=== PATIENT | female | born 1995 | race Hispanic/Latino ===

== ENCOUNTER 2024-03-11 13:02 | Outpatient (CLI) | payer OTHER | END 2024-03-11 13:03 | disposition home or self-care (01) | LOC: CSHULT 13:02 | PROVIDERS: ATTEND Family Medicine | DX: Z34.83 Encounter for supervision of other normal pregnancy, third trimester (principal); Z3A.34 34 weeks gestation of pregnancy | CPT/HCPCS: 76805 ==

== ENCOUNTER 2024-03-19 23:50 | Day surgery (SDC) | payer OTHER ==
[2024-03-20 00:25] VITALS: BMI 33.3
[2024-03-20 01:35] LABS: Bilirubin Neg (Negative); Blood, Urine Negative (Negative); Clarity Clear (Clear); Glucose, Urine (Dipstick) Normal (Negative); Ketone, Urine Negative (Negative); Leukocyte Negative (Negative); Nitrite Negative (Negative); Protein, Urine (Dipstick) 15 mg/dl (Neg-Trace); Specific Gravity, Urine 1.015 (1.005-1.030); pH, Urine 6.5 (5.0-9.0)
== END 2024-03-20 02:00 | disposition home or self-care (01) ==
LOC: CSHLD/OP 23:50
PROVIDERS: ATTEND Family Medicine
DX: O47.03 False labor before 37 completed weeks of gestation, third trimester (principal); O09.43 Supervision of pregnancy with grand multiparity, third trimester; O23.43 Unspecified infection of urinary tract in pregnancy, third trimester; R30.0 Dysuria; Z3A.36 36 weeks gestation of pregnancy; Z79.899 Other long term (current) drug therapy
CPT/HCPCS: 81003; 99283

== ENCOUNTER 2024-04-04 12:08 | Inpatient (IN) | payer MEDICAID, OTHER ==
[~2024-04-04 12:08] MED LIST: Bupivacaine 0.25% HCL 30 ML VIAL ONE; ePHEDrine Sulfate 50 MG/10 ML VIAL ONE
[2024-04-04] MEDS: Lactated Ringer's 1,000 ML IV SCH (12:40)
[2024-04-04 13:00] VITALS: BMI 35.7
[2024-04-04] MEDS ORDERED: Acetaminophen 500 MG TAB PO PRN (13:08)
[2024-04-04] MEDS ORDERED: Tranexamic Acid 1,000 MG/10 ML VIAL IVP PRN (13:08)
[2024-04-04] MEDS ORDERED: Methylergonovine 0.2 MG/ML VIAL IM PRN (13:08)
[2024-04-04] MEDS ORDERED: Misoprostol 200 MCG TAB PR PRN (13:08)
[2024-04-04] MEDS ORDERED: Ondansetron PF 4 MG/2 ML Vial IVP PRN ×2 (13:08→14:36)
[2024-04-04] MEDS ORDERED: Carboprost 250 MCG/ML AMP IM PRN (13:08)
[2024-04-04] MEDS ORDERED: Lidocaine 1% (PF) 30 ML VIAL SC PRN (13:08)
[2024-04-04] MEDS ORDERED: hydrALAZINE 20 MG/ML VIAL SLOW IVP PRN (13:08)
[2024-04-04] MEDS ORDERED: Diphenoxylate HCl/Atropine Tablet PO PRN (13:08)
[2024-04-04] MEDS ORDERED: fentaNYL 50 mcg/mL 1 mL Vial SLOW IVP PRN (13:08)
[2024-04-04] MEDS ORDERED: Promethazine HCl 25 MG/ML VIAL IM PRN ×2 (13:08→14:36)
[2024-04-04 13:23] LABS: Hematocrit 34.4 % (34.9-44.5); Hemoglobin 11.4 g/dL (12.0-15.5); Mean Corpuscular HGB CONC 33.1 g/dL (32.0-36.0); Mean Corpuscular Hemoglobin 25.9 pg (27.0-33.0); Mean Corpuscular Volume 78.2 fL (81.6-98.3); Platelet Count 289 10x3/uL (150-450); RBC Distribution Width 13.8 % (11.5-14.5); White Blood Cell (WBC) Count 10.1 10x3/uL (3.5-10.5)
[2024-04-04 14:07] LABS: HBsAg Index 0.17 S/CO (0-0.99); Hep B Surf Ag - L&D Non-Reactive S/CO (NonReactive)
[2024-04-04 14:09] LABS: Syphilis Antibody Nonreactive (Nonreactive); Syphilis Antibody Index 0.02 S/CO (<1.00 Non-Reactive)
[2024-04-04] MEDS ORDERED: fentaNYL/Ropivacaine Epidural 100 ML ONE (14:29)
[2024-04-04] MEDS ORDERED: ePHEDrine Sulfate 50 MG/10 ML VIAL SLOW IVP PRN (14:36)
[2024-04-04] MEDS ORDERED: Lactated Ringer's 500 ML IV PRN (14:36)
[2024-04-04] MEDS ORDERED: Acetaminophen 325 MG TAB PO PRN (14:36)
[2024-04-04] MEDS ORDERED: Naloxone HCl 0.4 mg/ml Vial IVP PRN ×2 (14:36)
[2024-04-04] MEDS ORDERED: diphenhydrAMINE 50 MG/ML VIAL IVP PRN (14:36)
[2024-04-04] MEDS ORDERED: Moisturizing Cream (Eucerin) 113 GM JAR TOP PRN (14:36)
[2024-04-04] MEDS: fentaNYL 2 mcg/Ropivacaine 0.2% Epidural 100 ML CADD EPIDURAL SCH (14:40)
[2024-04-04] MEDS ORDERED: Communication Order-Pharmacy FS SCH (14:45)
[2024-04-04] MEDS: Oxytocin 30 units/NS 500 ML 500 ML IV SCH (15:36)
[2024-04-05] MEDS ORDERED: diphenhydrAMINE 50 MG/ML VIAL ONE (00:11)
[2024-04-05] MEDS ORDERED: Ibuprofen 800 MG TAB ONE ×3 (06:11→20:57)
[2024-04-05] MEDS ORDERED: Ferrous Sulfate 325 MG TAB ONE (08:11)
[2024-04-05] MEDS ORDERED: Prenatal Vitamin 1 TAB ONE (08:11)
[2024-04-05] MEDS ORDERED: Docusate 100 MG CAP ONE ×2 (08:11→19:47)
[2024-04-05] MEDS ORDERED: HYDROcodone/Acetaminophen 5/325 mg Tablet ONE ×2 (13:11→19:48)
[2024-04-06] MEDS ORDERED: Ibuprofen 800 MG TAB ONE (05:10)
[2024-04-06] MEDS ORDERED: HYDROcodone/Acetaminophen 5/325 mg Tablet ONE (05:11)
[2024-04-06] MEDS ORDERED: Prenatal Vitamin 1 TAB ONE (08:04)
[2024-04-06] MEDS ORDERED: Docusate 100 MG CAP ONE (08:04)
== END 2024-04-05 00:11 | disposition home or self-care (01) | DRG 807 ==
LOC: CSHLD 12:08 → CSHPED 04-05 00:10
PROVIDERS: ADMIT Family Medicine; ATTEND Family Medicine
PROC: 10E0XZZ Delivery of Products of Conception, External Approach (ICD-10-PCS; principal; 2024-04-04)
PROC: 10D17Z9 Manual Extraction of Products of Conception, Retained, Via Natural or Artificial Opening (ICD-10-PCS; 2024-04-04)
PROC: 3E0S3BZ Introduction of Anesthetic Agent into Epidural Space, Percutaneous Approach (ICD-10-PCS; 2024-04-04)
DX: O80 Encounter for full-term uncomplicated delivery (principal); Z37.0 Single live birth; Z3A.38 38 weeks gestation of pregnancy
CPT/HCPCS: 51702; 85027; 86780; 86850; 86900; 86901; 87340; 99285; J0665; J2590; J7120